=== PATIENT | female | born 1960 | race Caucasian/White ===

== ENCOUNTER 2017-04-23 17:06 | Inpatient (IN) | payer MEDICAID ==
[~2017-04-23] VITALS: Ht 157.5 cm; Wt 72.1 kg
[2017-04-23 18:54] LABS: microscopic required? YES; urine erythrocyte 2+ (NEGATIVE)
[2017-04-23 18:58] LABS: BASOPHIL % 0.3 % (0-2); PLATELET COUNT 160 x10^3mcL (130-400)
[2017-04-23 19:03] LABS: RED CELL DISTRIBUTION WIDTH 15.9 % (11.5-14.5)
[2017-04-23 19:06] LABS: CARBON DIOXIDE 26.9 mmol/L (21-32); CHLORIDE SERUM 101 mmol/L (98-107); CREATININE SERUM 0.8 mg/dL (0.6-1.0); GFR1 > 60 mL/min; GLUCOSE SERUM 127 mg/dL (74-106); POTASSIUM SERUM 3.7 mmol/L (3.5-5.1); SODIUM SERUM 136 mmol/L (136-145)
[2017-04-23 19:12] LABS: ALBUMIN 3.7 g/dL (3.4-5.0); ALKALINE PHOSPHATASE 98 U/L (46-116); ALT/SGPT 38 U/L (14-59); AST/SGOT 23 U/L (15-37); BILIRUBIN TOTAL 0.4 mg/dL (0.20-1.00); CHOLESTEROL 165 mg/dL (<200); CHOLESTEROL/HDL RATIO 3.3; HDL CHOLESTEROL 50 mg/dL (40-60); LIPASE 110 IU/L (73-393); TRIGLYCERIDES 197 mg/dL (<150)
[2017-04-23 19:13] LABS: TOTAL PROTEIN, SERUM 8.4 g/dL (6.4-8.2)
[2017-04-23 19:19] LABS: T3 TOTAL 1.1 ng/mL
[2017-04-23 19:33] LABS: FREE T4 1.02 ng/dL (0.76-1.46); FREE THYROXINE INDEX 2.7 ug/dL (1.4-4.5); T4(THYROXINE) 7.8 ug/dL (4.7-13.3)
[2017-04-23] MEDS ORDERED: APAP500 MG PO (21:06)
[2017-04-23 21:48] VITALS: BP 128/70
[2017-04-23 23:20] LABS: MAGNESIUM 1.8 mg/dL (1.8-2.4)
[2017-04-24 05:51] VITALS: BP 136/74
[2017-04-24 06:39] LABS: CALCIUM 8.5 mg/dL (8.5-10.1); CARBON DIOXIDE 26.1 mmol/L (21-32); CHLORIDE SERUM 104 mmol/L (98-107); CREATININE SERUM 0.8 mg/dL (0.6-1.0); GFR1 > 60 mL/min; GLUCOSE SERUM 123 mg/dL (74-106); MAGNESIUM 1.8 mg/dL (1.8-2.4); POTASSIUM SERUM 3.5 mmol/L (3.5-5.1); SODIUM SERUM 140 mmol/L (136-145)
[2017-04-24 06:45] LABS: BASOPHIL % 0.1 % (0-2); PLATELET COUNT 137 x10^3mcL (130-400)
[2017-04-24 07:18] LABS: RED CELL DISTRIBUTION WIDTH 16.4 % (11.5-14.5)
[2017-04-24 08:25] LABS: AMPHETAMINE QUAL UR NONE DETECTED (NEG <=1000)
[2017-04-24 13:00] VITALS: BP 136/83
[2017-04-24 14:26] VITALS: BP 144/79
[2017-04-24 17:48] VITALS: BP 137/77
[2017-04-24 21:16] VITALS: BP 133/82
[2017-04-25 05:42] VITALS: BP 155/75
[2017-04-25 05:55] LABS: BASOPHIL % 0.2 % (0-2); PLATELET COUNT 130 x10^3mcL (130-400)
[2017-04-25 06:23] LABS: CALCIUM 8.8 mg/dL (8.5-10.1); CARBON DIOXIDE 27.7 mmol/L (21-32); CHLORIDE SERUM 103 mmol/L (98-107); CREATININE SERUM 0.7 mg/dL (0.6-1.0); GFR1 > 60 mL/min; GLUCOSE SERUM 128 mg/dL (74-106); MAGNESIUM 2.1 mg/dL (1.8-2.4); PHOSPHOROUS 2.8 mg/dL (2.5-4.9); POTASSIUM SERUM 3.6 mmol/L (3.5-5.1); SODIUM SERUM 140 mmol/L (136-145)
[2017-04-25 07:20] LABS: RED CELL DISTRIBUTION WIDTH 15.9 % (11.5-14.5)
[2017-04-25 10:00] VITALS: BP 148/85
[2017-04-25 17:59] VITALS: BP 104/66
[2017-04-25 22:01] VITALS: BP 154/88
[2017-04-26 05:50] VITALS: BP 148/79
[2017-04-26 09:45] VITALS: BP 147/86
[2017-04-26 10:15] VITALS: BP 147/86
[2017-04-26] MEDS ORDERED: COLACE100 MG PO (11:26)
[2017-04-26] MEDS ORDERED: LAXATIVE5 M1 PO (11:27)
[2017-04-26] MEDS ORDERED: NORCO1 TA2 PO (11:27)
[2017-04-26] MEDS ORDERED: FLORASTOR1 CAP PO (12:10)
[2017-04-26] MEDS ORDERED: LEVAQUIN750 MG PO (12:10)
[2017-04-26] MEDS ORDERED: FLA500 PO (12:10)
[2017-04-26 14:47] LABS: BASOPHIL % 0.1 % (0-2); PLATELET COUNT 155 x10^3mcL (130-400); RED CELL DISTRIBUTION WIDTH 16.4 % (11.5-14.5)
== END 2017-04-26 15:21 | disposition home or self-care (01) | DRG 263 ==
LOC: ED 17:06 → DU 20:46 → MU 04-24 13:40
PROVIDERS: Family Medicine; Specialist; Surgery; ADMIT Family Medicine
PROC: 0FT44ZZ Resection of Gallbladder, Percutaneous Endoscopic Approach (ICD-10-PCS; principal; 2017-04-24 09:30)
DX: K80.10 Calculus of gallbladder with chronic cholecystitis without obstruction (principal); N17.0 Acute kidney failure with tubular necrosis; N39.0 Urinary tract infection, site not specified; R73.03 Prediabetes; R31.9 Hematuria, unspecified; K44.9 Diaphragmatic hernia without obstruction or gangrene; Z68.29 Body mass index [BMI] 29.0-29.9, adult
CPT/HCPCS: 83880; 84439; 94150; J0330; J1644; J1885; J2175; J2250; J2270; J2405; J2543; J2704; J2710; J3010; J3490; J7030; J7120; Q0092

== ENCOUNTER 2017-04-27 16:20 | Emergency (ER) | payer MEDICAID ==
[~2017-04-27] VITALS: Ht 157.5 cm; Wt 70.8 kg
[~2017-04-27 16:20] MED LIST: APAP500 MG PO; COLACE100 MG PO; FLA500 PO; FLORASTOR1 CAP PO; LAXATIVE5 M1 PO; LEVAQUIN750 MG PO; NORCO1 TA2 PO
[2017-04-27 16:25] VITALS: BP 106/79
== END 2017-04-27 17:48 | disposition left against medical advice (07) ==
LOC: ED 16:20
DX: Z53.21 Procedure and treatment not carried out due to patient leaving prior to being seen by health care provider (principal)